=== PATIENT | female | born 1975 | race Caucasian/White ===

== ENCOUNTER 2018-05-31 14:22 | Emergency (ER) | payer OTHER ==
[~2018-05-31] VITALS: Ht 162.6 cm; Wt 115.7 kg
[2018-06-01] MEDS ORDERED: ALBUTEROL2.5 MG/3 M IH (03:33)
[2018-06-01] MEDS ORDERED: ZOFRAN ODT4 MG PO (03:33)
[2018-06-01] MEDS ORDERED: RANITIDINE HCL300 MG PO (03:33)
[2018-06-01] MEDS ORDERED: PROVENTIL HFA6.7 GM IH (03:33)
== END 2018-06-01 04:05 | disposition home or self-care (01) ==
LOC: ER 14:22
DX: B34.9 Viral infection, unspecified (principal); K29.70 Gastritis, unspecified, without bleeding; J45.998 Other asthma